=== PATIENT | male | born 1960 | race Caucasian/White ===

== ENCOUNTER → 2018-02-06 | Outpatient (CLI) | payer SELFPAY ==
[2018-02-06 11:05] LABS: ALBUMIN 3.8 gm/dL (3.5-5.0); BILIRUBIN,TOTAL 0.6 mg/dL (0.0-1.0); CALCIUM 9.1 mg/dL (8.4-10.2); CHOLESTEROL RISK RATIO 4.1; CREATININE, serum 0.87 mg/dL (0.66-1.25); POTASSIUM 4.2 mmol/L (3.4-5.0); TOTAL PROTEIN 7.3 gm/dL (6.4-8.2)
[2018-02-06 14:07] LABS: HEMATOCRIT 43.6 % (42.0-52.0); HEMOGLOBIN 14.7 g/dl (13.5-18.0); MEAN CELL VOLUME 89 fl (80.0-100.0); MEAN CORPUSCULAR HEMOGLOBIN 30 pg (27.0-31.0); MEAN CORPUSCULAR HGB CONC 34 g/dl (33.0-37.0); MEAN PLATELET VOLUME 13.4 fl (7.4-10.4); PLATELET COUNT 74 K/mm3 (130-400); RED BLOOD COUNT 4.89 M/mm3 (4.20-5.60); REDCELL DISTRIBUTION WIDTH-CV 13.6 % (11.5-14.5)
== END ==
LOC: COL.LAB 10:16
PROVIDERS: Internal Medicine
DX: E11.9 Type 2 diabetes mellitus without complications (principal); I10 Essential (primary) hypertension; D69.6 Thrombocytopenia, unspecified

== ENCOUNTER → 2019-08-28 | Outpatient (CLI) | payer OTHER | LOC: COL.RAD 08:55 | DX: Z02.71 Encounter for disability determination (principal); M51.35 Other intervertebral disc degeneration, thoracolumbar region ==

== ENCOUNTER → 2019-09-22 | Outpatient (CLI) | payer SELFPAY | LOC: COL.RAD 09:40 | DX: I87.8 Other specified disorders of veins (principal) ==

== ENCOUNTER → 2020-09-14 | Emergency (ER) | payer SELFPAY | LOC: COL.ER 12:48 | DX: Z00.00 Encounter for general adult medical examination without abnormal findings (principal) ==

== ENCOUNTER → 2020-09-16 | Outpatient (CLI) | payer SELFPAY | LOC: ZCOL.LAB 20:43 | DX: U07.1 COVID-19 (principal) ==

== ENCOUNTER → 2020-09-20 | Outpatient (CLI) | payer SELFPAY | LOC: COL.RAD 13:25 | DX: R10.9 Unspecified abdominal pain (principal) ==

== ENCOUNTER 2020-10-17 10:49 | Emergency (ER) | payer SELFPAY ==
[~2020-10-17] VITALS: Ht 170.2 cm; Wt 80.0 kg
[2020-10-17 10:57] VITALS: TEMP 98.4
[2020-10-17 11:35] LABS: BASO % 0.5 % (0.0-2.0); EOS # 0.1 (0.0-0.7); EOS % 1.9 % (0-4.0); GRAN # 2.7 (1.4-6.5); GRAN % 62.9 % (42.2-75.2); HEMATOCRIT 39.2 % (42.0-52.0); HEMOGLOBIN 13.1 g/dl (13.5-18.0); LYMPH # 1.1 (1.2-3.4); LYMPH % 26.8 % (20.0-51.0); MEAN CELL VOLUME 89 fl (80.0-100.0); MEAN CORPUSCULAR HEMOGLOBIN 30 pg (27.0-31.0); MEAN CORPUSCULAR HGB CONC 33 g/dl (33.0-37.0); MEAN PLATELET VOLUME 13.2 fl (7.4-10.4); MONO # 0.3 (0.1-0.6); MONO % 7.7 % (1.7-9.3); PLATELET COUNT 72 K/mm3 (130-400); RED BLOOD COUNT 4.41 M/mm3 (4.20-5.60); REDCELL DISTRIBUTION WIDTH-CV 14.1 % (11.5-14.5)
[2020-10-17 11:42] LABS: ALANINE AMINOTRANSFERASE 20 U/L (4-49); ALBUMIN 3.7 gm/dL (3.5-5.0); ALKALINE PHOSPHATASE 53 U/L (50-136); ANION GAP 5 mmol/L (7-16); AST,SGOT 28 U/L (15-37); BILIRUBIN,TOTAL 0.4 mg/dL (0.0-1.0); BLOOD UREA NITROGEN 10 mg/dL (9-20); CALCIUM 9.1 mg/dL (8.4-10.2); CARBON DIOXIDE 28 mmol/L (22-30); CHLORIDE 105 mmol/L (98-107); CREATININE, serum 0.91 (0.66-1.25); GLUCOSE 256 mg/dL (74-106); POTASSIUM 3.7 mmol/L (3.4-5.0); SODIUM 138 mmol/L (137-145); TOTAL PROTEIN 6.6 gm/dL (6.4-8.2)
[2020-10-17] MEDS ORDERED: KAPSPARGO SPRIN50 MG PO (11:51)
[2020-10-17 11:55] LABS: TROPONIN-I < 0.012 ng/mL (0.000-0.035)
[2020-10-17] MEDS ORDERED: LOPRESSOR 550 MG/TAB PO (16:05)
[2020-10-17 16:13] VITALS: BP 161/92; PULSE 64
== END 2020-10-17 16:29 | disposition home or self-care (01) ==
LOC: COL.ER 10:49
PROVIDERS: Emergency Medicine
DX: I10 Essential (primary) hypertension (principal); F17.210 Nicotine dependence, cigarettes, uncomplicated

== ENCOUNTER → 2020-10-29 | Outpatient (CLI) | payer SELFPAY ==
[~2020-10-29] MED LIST: ASPIRIN E.C. 8181 MG PO; CENTRUM SILVER1 TA2 PO; GAS RELIEF 8080 MG PO; KAPSPARGO SPRIN50 MG PO; LOPRESSOR 550 MG/TAB PO; NORVASC 5MG5 MG/TAB PO; PRINZIDE 25 MG-1 TAB PO
== END ==
LOC: COL.RAD
DX: R93.89 Abnormal findings on diagnostic imaging of other specified body structures (principal)
CPT/HCPCS: Q9967

== ENCOUNTER 2020-12-03 09:10 | Day surgery (SDC) | payer SELFPAY ==
[~2020-12-03] VITALS: Ht 170.2 cm; Wt 83.0 kg
[~2020-12-03 09:10] MED LIST changes: -ASPIRIN E.C. 8181 MG PO; -CENTRUM SILVER1 TA2 PO; -GAS RELIEF 8080 MG PO; -NORVASC 5MG5 MG/TAB PO; -PRINZIDE 25 MG-1 TAB PO
[2020-12-03] MEDS ORDERED: ASPIRIN E.C. 8181 MG PO (10:16)
[2020-12-03] MEDS ORDERED: GAS RELIEF 8080 MG PO (10:17)
[2020-12-03] MEDS ORDERED: PRINZIDE 25 MG-1 TAB PO (10:18)
[2020-12-03] MEDS ORDERED: NORVASC 5MG5 MG/TAB PO (10:19)
[2020-12-03] MEDS ORDERED: CENTRUM SILVER1 TA2 PO (10:20)
[2020-12-03 10:29] VITALS: BP 131/75; PULSE 62; TEMP 98.1
[2020-12-03 11:15] VITALS: BP 106/64; PULSE 69
--- NOTE | 2020-12-03 11:15 | NUR ---
to bay [facility] via cart from endo room, amb. to chair in room, pt took ice water, call light in reach
[2020-12-03 11:30] VITALS: BP 120/77; PULSE 60
--- NOTE | 2020-12-03 11:30 | NUR ---
Dr into see pt, wheel polisher used on phone for instructions and for Dr discussion. At that time home instructions given while using interpretor with paper instructions given in English also, with verbal understanding.
[2020-12-03 11:45] VITALS: BP 117/80; PULSE 68
--- NOTE | 2020-12-03 11:45 | NUR ---
pt took apple juice, muffin, tolerated well. iv dc'd intact. pt up in room dressed. and discharged 1150 via w/c to car
== END 2020-12-03 11:50 | disposition home or self-care (01) ==
LOC: SDCO 09:10
DX: Z12.11 Encounter for screening for malignant neoplasm of colon (principal); K21.00 Gastro-esophageal reflux disease with esophagitis, without bleeding; K74.60 Unspecified cirrhosis of liver; K64.2 Third degree hemorrhoids; Z79.82 Long term (current) use of aspirin; I10 Essential (primary) hypertension; D69.6 Thrombocytopenia, unspecified
CPT/HCPCS: J2704; J7120

== ENCOUNTER 2021-12-09 09:22 | Emergency (ER) | payer SELFPAY ==
[~2021-12-09] VITALS: Ht 167.6 cm; Wt 80.0 kg
[2021-12-09 09:23] VITALS: TEMP 97.8
[2021-12-09 10:15] LABS: BASO % 0.5 % (0.0-2.0); EOS # 0.1 K/mm3 (0.0-0.7); EOS % 1.9 % (0.0-4.0); GRAN # 3.8 K/mm3 (1.4-6.5); GRAN % 60.5 % (42.2-75.2); HEMATOCRIT 42.5 % (42.0-52.0); HEMOGLOBIN 14.5 g/dl (13.5-18.0); LYMPH # 1.7 K/mm3 (1.2-3.4); LYMPH % 27.3 % (20.0-51.0); MEAN CELL VOLUME 85 fl (80.0-100.0); MEAN CORPUSCULAR HEMOGLOBIN 29 pg (27-31); MEAN CORPUSCULAR HGB CONC 34 g/dl (33.0-37.0); MEAN PLATELET VOLUME 13.1 fl (7.4-10.4); MONO # 0.6 K/mm3 (0.1-0.6); MONO % 9.5 % (1.7-9.3); PLATELET COUNT 97 K/mm3 (130-400); RED BLOOD COUNT 5.01 M/mm3 (4.20-5.60)
[2021-12-09 10:34] LABS: ALANINE AMINOTRANSFERASE 16 U/L (0-55); ALBUMIN 3.6 gm/dL (3.4-4.8); ALKALINE PHOSPHATASE 65 U/L (40-150); ANION GAP 9 mmol/L (7-16); AST,SGOT 17 U/L (5-34); BILIRUBIN,TOTAL 0.9 mg/dL (0.2-1.2); BLOOD UREA NITROGEN 15 mg/dL (8-26); CALCIUM 9.3 mg/dL (8.4-10.2); CARBON DIOXIDE 27 mmol/L (23-31); CHLORIDE 104 mmol/L (98-107); CREATININE, serum 0.98 mg/dL (0.72-1.25); GLUCOSE 128 mg/dL (70-99); POTASSIUM 3.9 mmol/L (3.5-4.5); SODIUM 140 mmol/L (136-145); TOTAL PROTEIN 6.8 gm/dL (6.2-8.1)
[2021-12-09 10:44] LABS: TROPONIN-I < 0.010 ng/mL (0.00-0.033)
[2021-12-09 11:48] VITALS: BP 132/96; PULSE 67
== END 2021-12-09 12:01 | disposition home or self-care (01) ==
LOC: COL.ER 09:22
PROVIDERS: Student in an Organized Health Care Education/Training Program
DX: I48.91 Unspecified atrial fibrillation (principal); I10 Essential (primary) hypertension; F17.210 Nicotine dependence, cigarettes, uncomplicated; Z79.899 Other long term (current) drug therapy

== ENCOUNTER → 2021-12-09 | Day surgery (SDC) | payer SELFPAY ==
[~2021-12-09] VITALS: Ht 172.7 cm; Wt 81.4 kg
[~2021-12-09] MED LIST changes: +ASPIRIN E.C. 8181 MG PO; +CENTRUM SILVER1 TA2 PO; +GAS RELIEF 8080 MG PO; +GLUCOPHAGE500 MG/TAB PO; +NORVASC 5MG5 MG/TAB PO; +PRILOSEC 20MG20 MG PO; +PRINZIDE 25 MG-1 TAB PO
[2021-12-09 07:28] VITALS: BP 133/89; PULSE 62; TEMP 98.5
[2021-12-09 10:16] VITALS: BP 125/85; PULSE 64
== END ==
LOC: SDCO 06:46
DX: K70.30 Alcoholic cirrhosis of liver without ascites (principal); K21.9 Gastro-esophageal reflux disease without esophagitis
CPT/HCPCS: J2704; J7120

== ENCOUNTER → 2021-12-30 | Outpatient (CLI) | payer SELFPAY | LOC: COL.CARD 07:24 | DX: I48.91 Unspecified atrial fibrillation (principal) ==

== ENCOUNTER → 2022-02-08 | Outpatient (CLI) | payer SELFPAY | LOC: COL.RAD 08:05 | DX: K70.30 Alcoholic cirrhosis of liver without ascites (principal) ==

== ENCOUNTER 2022-02-28 08:25 | Outpatient (CLI) | payer SELFPAY ==
[~2022-02-28] VITALS: Ht 172.8 cm; Wt 81.8 kg
[2022-02-28 09:46] LABS: INR 1.9 (0.8-3.0); PROTHROMBIN TIME 22.3 SECONDS (9.7-12.8)
[2022-02-28 09:47] LABS: POTASSIUM 3.6 mmol/L (3.5-4.5)
[2022-02-28 09:54] VITALS: BP 115/81; PULSE 51; TEMP 97.6
[2022-02-28] MEDS ORDERED: LOPRESSOR 550 MG/TAB PO (09:58)
[2022-02-28] MEDS ORDERED: XARELTO20 MG PO (09:59)
[2022-02-28 10:13] LABS: THYROID STIMULATING HORMONE 1.152 uIU/mL (0.350-4.940)
[2022-02-28 14:50] VITALS: BP 125/81; PULSE 54
[2022-02-28 15:00] VITALS: BP 127/80; PULSE 57
[2022-02-28 15:15] VITALS: BP 121/71; PULSE 56
[2022-02-28 15:30] VITALS: BP 122/72; PULSE 54
[2022-02-28 15:45] VITALS: BP 116/81; PULSE 53
--- NOTE | 2022-02-28 16:02 | NUR ---
DC instructions reviewed with pt and using phone general dentist service. They express understanding and deny questions. Pt is aware of follow up appt with Dr Cardona's office 03/30/22 at 0900. He has tolerated PO without issue. He is steady on feet to restroom. IV DC'd with catheter intact, site wrapped with coban. He will be assisted out by wheelchair when their ride arrives.
--- NOTE | 2022-02-28 16:14 | NUR ---
Pt assisted out by wheelchair to granddaughter's car for ride home. Belongings taken with pt and .
== END 2022-02-28 16:15 | disposition home or self-care (01) ==
LOC: COL.RAD 08:25
PROVIDERS: Internal Medicine Interventional Cardiology
DX: I48.91 Unspecified atrial fibrillation (principal)
CPT/HCPCS: J2704; J7030

== ENCOUNTER → 2022-05-24 | Outpatient (CLI) | payer MEDICAID ==
[~2022-05-24] VITALS: Ht 172.8 cm; Wt 82.6 kg
[~2022-05-24] MED LIST changes: +LIPITOR 10MG10 MG PO; +XARELTO20 MG PO
[2022-05-24 10:54] VITALS: BP 156/80; PULSE 62; TEMP 97.4
[2022-05-24 11:21] VITALS: BP 149/79; PULSE 59
[2022-05-24 12:34] VITALS: BP 130/84; PULSE 69
[2022-05-24 12:36] VITALS: BP 138/76; PULSE 81
[2022-05-24 12:37] VITALS: BP 144/80; PULSE 80
[2022-05-24 12:38] VITALS: BP 131/74; PULSE 78
== END ==
LOC: COL.CARD 10:05
DX: R07.9 Chest pain, unspecified (principal); I48.91 Unspecified atrial fibrillation; R06.02 Shortness of breath
CPT/HCPCS: A9500; J2785

== ENCOUNTER → 2023-01-02 | Outpatient (CLI) | payer MEDICAID ==
[~2023-01-02] MED LIST changes: +LIPITOR 80MG80 MG PO
== END ==
LOC: COL.RAD 13:38
DX: K70.30 Alcoholic cirrhosis of liver without ascites (principal); I85.10 Secondary esophageal varices without bleeding; K82.0 Obstruction of gallbladder; R14.0 Abdominal distension (gaseous)
CPT/HCPCS: Q9967

== ENCOUNTER 2023-07-09 13:51 | Outpatient (RCR) | payer MEDICAID ==
[~2023-07-09 13:51] MED LIST changes: +PEPCID 20MG TAB20 MG PO
== END 2023-07-26 | disposition home or self-care (01) ==
LOC: COL.CR
DX: I25.119 Atherosclerotic heart disease of native coronary artery with unspecified angina pectoris (principal)

== ENCOUNTER 2023-07-30 16:31 | Outpatient (RCR) | payer MEDICAID | END 2023-08-26 | disposition home or self-care (01) | LOC: COL.CR | DX: I25.119 Atherosclerotic heart disease of native coronary artery with unspecified angina pectoris (principal) ==

== ENCOUNTER 2023-10-22 14:07 | Outpatient (RCR) | payer MEDICAID | END 2023-10-25 | disposition home or self-care (01) | LOC: COL.CR | DX: I25.119 Atherosclerotic heart disease of native coronary artery with unspecified angina pectoris (principal) ==